=== PATIENT | female | born 1975 | race Caucasian/White ===

== ENCOUNTER 2016-08-09 22:42 | Emergency (ER) | payer OTHER, SELFPAY ==
--- NOTE | 2016-08-11 00:39 | ER ---
ADMIT: 08/09/2016 RM/LOC: ER [facility] MR#: [id number] [facility] [address] [place] [id number] KLAUDIA LENTZ [address] [place] [address] Emergency Room Report SEX: F AGE: 40 : 1975 DATE: 08/09/2016 TIME: 2242 hours. Please refer to my T-sheet for complete H and P. HISTORY OF PRESENT ILLNESS: Briefly, the patient is a 40-year-old, comes in today. She has had back pain, hip pain, out of medications. She says it has been worse today because she did a lot of driving. She has chronic pain issues and some sort of "bone disease." She currently is not following any practitioner. She is trying to get in and see Dr. Linares again. She rates it /. She smokes a pack and half a day. Does not take her medications because she says she is out. PHYSICAL EXAMINATION: VITAL SIGNS: Blood pressure 126/79, pulse 112, respirations 18, temp 97.2, saturating 97%. GENERAL: No acute distress. HEENT: Grossly normal. LUNGS: Clear. HEART: Regular. ABDOMEN: Soft, nontender. JOINTS: She has diffuse tenderness. BACK: She has diffuse tenderness. NEUROLOGIC: Alert, oriented. Nonfocal. EMERGENCY DEPARTMENT COURSE: I had a long discussion with her about plans going forward. I recommended she stop smoking, watch her sugars carefully. I recommend she try exercise and follow up as an outpatient for chronic issues. I gave her two Erwin 5 mg p.o., glipizide 5 mg p.o., and metformin 500 mg p.o. ASSESSMENT: 1. Chronic pain. 2. Out of medications. 3. Nicotine abuse. PLAN: Stop smoking, exercise, return if worse, follow up with Dr. Linares. I wrote her script for #15 Erwin. I refilled her metformin and glipizide. Alexander Parada MD/ shawn JOB #: [id number] CC: Alexander Parada MD, Attending Physician Sancho Linares MD, Family Physician
== END 2016-08-09 23:43 | disposition home or self-care (01) ==
LOC: ER 22:42
DX: G89.29 Other chronic pain (principal); F17.210 Nicotine dependence, cigarettes, uncomplicated; Z88.1 Allergy status to other antibiotic agents; Z88.8 Allergy status to other drugs, medicaments and biological substances

== ENCOUNTER 2016-08-29 14:59 | Emergency (ER) | payer OTHER, SELFPAY ==
--- NOTE | 2016-09-04 21:28 | ER ---
ADMIT: 08/29/2016 RM/LOC: ER [facility] MR#: [id number] [address] [facility] [address] [place], [place] [id number] KLAUDIA LENTZ [address] [place] [address] Emergency Room Report SEX: F AGE: 40 : 1975 DATE: 08/29/2016 ADDENDUM: A 40-year-old female, comes in with some abdominal pain that has been present for approximately 4 days. She believes it is associated with her period. She does have a history of ovarian cyst in the past. She states she cannot be at this time and is still on her period. The patient reports that she has been having a normal appetite, eating and drinking fine, not having nausea or vomiting, no change in stool, no urinary symptoms. In the ER, I did check CBC, CMP, urine , and urinalysis which were unremarkable other than 2+ blood in her urine. While in the ER, she received Toradol and Mentcle with some resolution of her symptoms, but then was given p.o. Valium towards the end of her stay. At this point, the fact that this has been present for at least 4 days. She has normal vital signs, is tolerating p.o. without difficulty, has normal labs. I feel comfortable having the patient discharged home. To take her pain medications that she already has at home. To follow up with Dr. Dillard if her symptoms are not improving in the next 3 to 5 days. DIAGNOSIS: Abdominal pain. Demetrius Santo MD/ shawn JOB #: [id number] CC: Demetrius Santo MD, Attending Physician Blayne Kirby MD, Family Physician
== END 2016-08-29 17:40 | disposition home or self-care (01) ==
LOC: ER 14:59
DX: R10.9 Unspecified abdominal pain (principal); F17.210 Nicotine dependence, cigarettes, uncomplicated; Z88.1 Allergy status to other antibiotic agents